=== PATIENT | female | born 1940 | race African-American/Black ===

== ENCOUNTER 2016-09-23 14:30 | Emergency (ER) | payer MEDICARE, BC ==
[~2016-09-23] VITALS: Ht 160 cm; Wt 80.0 kg
[2016-09-23 14:45] VITALS: BP 128/73; PULSE 89; RESP 18; TEMP 98.9; O2SAT 97
[2016-09-23] MEDS ORDERED: TRIA37.53 PO (15:06)
[2016-09-23] MEDS ORDERED: DIFL0.0512 (15:06)
[2016-09-23] MEDS ORDERED: ASPI81CH CHEW (15:06)
[2016-09-23] MEDS ORDERED: SYSTSOL11 (15:06)
[2016-09-23] MEDS ORDERED: TIMO5SOL LEFT EYE (15:06)
[2016-09-23] MEDS ORDERED: ALPR.25 PO (15:06)
[2016-09-23] MEDS ORDERED: ROSU1TAB4 PO (15:06)
[2016-09-23] MEDS ORDERED: MOME17I EACH NARE (15:06)
[2016-09-23] MEDS ORDERED: EVIS60TA PO (15:06)
[2016-09-23] MEDS ORDERED: FOLI1TAB4 PO (15:06)
[2016-09-23] MEDS ORDERED: ICOS1CAP PO (15:06)
[2016-09-23] MEDS ORDERED: POTA10CA PO (15:06)
[2016-09-23] MEDS ORDERED: TRAM50TA PO (15:06)
[2016-09-23] MEDS ORDERED: ZANT150T2 PO (15:06)
--- NOTE | 2016-09-23 15:11 | PD ---
HPI Chief Complaint: Cold / Flu Symptoms Time Seen by Provider: 15:09 Travel History International Travel<30 days: No Contact w/Intl Traveler<30days: No Traveled to known affect area: No History of Present Illness HPI 76 year old female with PMH of DM, GERD, TIA presents to the ED for evaluation of 5 day history of nonproductive cough, chills, malaise. The patient is visiting from the [facility] area. She endorses chronic sinusitis (no worse today), mildly sore throat, very mild nausea. She denies fevers, ear pain, headache, shortness of breath, abdominal pain, vomiting, dysuria or back pain. She endorses chronic urinary urgency which she attributes to "my water pill." No treatment attempted at home. PFSH Past Medical History Anxiety: Yes High Cholesterol: Yes Cerebrovascular Accident: Yes (tia) Diabetes: Yes Patient Takes Glucophage: No GERD: Yes Social History Alcohol Use: No Tobacco Use: No Allergies-Medications (Allergen,Severity, Reaction): Coded Allergies: Bactrim (Verified Allergy, Severe, Rash, 09/23/16) Benadryl (Verified Allergy, Severe, Anaphylaxis, 09/23/16) Colace (Verified Allergy, Severe, Nausea/Vomiting, 09/23/16) Contrast Media (Verified Allergy, Severe, Dizziness, 09/23/16) Diflucan (Verified Allergy, Severe, Rash, 09/23/16) Erythromycin (Verified Allergy, Severe, Rash, 09/23/16) Fluconazole (Verified Allergy, Severe, Anaphylaxis, 09/23/16) Keflex (Verified Allergy, Severe, Anaphylaxis, 09/23/16) Zetia (Verified Allergy, Severe, Rash, 09/23/16) Zithromax (Verified Allergy, Severe, Anaphylaxis, 09/23/16) Dimetapp (Verified Allergy, Intermediate, ITCHING, 09/23/16) Penicillin (Verified Allergy, Intermediate, HIVES, 09/23/16) Reported Meds & Prescriptions Reported Meds & Active Scripts Active Tessalon Perles (Benzonatate) 100 Mg Cap 200 Mg PO TID PRN Levaquin (Levofloxacin) 750 Mg Tab 750 Mg PO DAILY Reported Tramadol (Tramadol HCl) 50 Mg Tab 50 Mg PO Q4H PRN Timolol Opth Drops 0.25 % Soln 1 Drop LEFT EYE DAILY Evista (Raloxifene HCl) 60 Mg Tab 60 Mg PO DAILY Zantac (Ranitidine HCl) 150 Mg Tab 150 Mg PO BID Systane Ultra Preservative Opth (Polyethylene Glycol-Propylene Opth) 0.4-0.3% Soln Nasonex Nasal [place] (Mometasone Furoate) 50 Mcg/Act Naspr 2 [place] EACH NARE DAILY Durezol Opth (Difluprednate Opth) 0.05% Emul Xanax (Alprazolam) 0.25 Mg Tab 0.25 Mg PO Q6H PRN Rosuvastatin (Rosuvastatin Calcium) 5 Mg Tab 5 Mg PO DAILY Potassium Chloride ER (Potassium Chloride) 10 Meq Cap 10 Meq PO DAILY Vascepa (Icosapent) 1 Gm Cap 1 Gm PO BID Triamterene-Hydrochlorothiazide 37.5-25 Mg Cap 1 Cap PO DAILY Folate (Folic Acid) 1 Mg Tab 1 Mg PO DAILY Aspirin 81 Mg Chew 81 Mg CHEW DAILY Review of Systems Except as stated in HPI: all other systems reviewed are Neg Physical Exam Narrative GENERAL: Well-nourished, well-developed nontoxic-appearing black female in no acute distress. SKIN: Warm and dry. HEAD: Normocephalic. Atraumatic. EYES: No scleral icterus. No injection or drainage. PERRLA. EOMI. ENT: Pearly biggs tympanic membranes bilaterally. Nasal mucosa is moist. Oropharynx without erythema, edema or exudate. NECK: Supple, trachea midline. No JVD or lymphadenopathy. CARDIOVASCULAR: Regular rate and rhythm without murmurs, gallops, or rubs. 2+ DP and radial pulses bilaterally. RESPIRATORY: Breath sounds clear and equal bilaterally. No accessory muscle use. GASTROINTESTINAL: Abdomen soft, non-tender, nondistended. + Bowel sounds MUSCULOSKELETAL: No cyanosis, or edema. The patient is ambulatory and walks with a normal gait. BACK: Nontender without obvious deformity. No CVA tenderness. Data Data Last Documented VS Vital Signs Date Time Temp Pulse Resp B/P Pulse Ox O2 Delivery O2 Flow Rate FiO2 09/23/16 14:45 98.9 89 18 128/73 97 Orders Group A Rapid Strep Screen (09/23/16 15:15) Influenzae A/B Antigen (09/23/16 15:15) Chest, Single Ap (09/23/16 ) Strep Culture (Group A) (09/23/16 15:20) MDM Medical Decision Making Medical Screen Exam Complete: Yes Emergency Medical Condition: Yes Differential Diagnosis viral syndrome versus pharyngitis versus influenza versus GERD versus pneumonia versus other Narrative Course 76 year old female with PMH of DM, GERD, TIA presents to the ED for evaluation of 5 day history of nonproductive cough, chills, malaise. The patient is visiting from the [facility] area. She endorses chronic sinusitis (no worse today), mildly sore throat, very mild nausea. She denies fevers, ear pain, headache, shortness of breath, abdominal pain, vomiting, dysuria or back pain. She endorses chronic urinary urgency which she attributes to "my water pill." No treatment attempted at home. Vitals reviewed. Physical exam reveals a nontoxic- appearing black female in no acute distress. ENT exam is unremarkable. Chest is clear to auscultation bilaterally. Abdomen soft, nontender. Rapid strep swab, influenza swab and chest x-ray ordered. Dr. Kaplan assumed care of this patient. Please see his note for disposition. Scripts Benzonatate (Tessalon Perles)100 Mg [id number] Mg PO TID PRN (COUGH) #21 CAP Ref 0 Prov:Marcial Kaplan MD 09/23/16 Levofloxacin (Levaquin)750 Mg [id number] Mg PO DAILY #7 TAB Ref 0 Prov:Marcial Kaplan MD 09/23/16 Yodit Tavarez Sep 23, 2016 15:11
--- NOTE | 2016-09-23 16:21 | RADHPO ---
EXAM DATE/TIME: 09/23/2016 15:47 [facility] COMPARISON: No previous studies available for comparison. INDICATIONS : Cough and fever. MEDICAL HISTORY : None. SURGICAL HISTORY : None. ENCOUNTER: Initial ACUITY: 1 week PAIN SCORE: 2/10 LOCATION: Bilateral chest FINDINGS: A single view of the chest demonstrates the lungs to be symmetrically aerated without evidence of mas s, infiltrate or effusion. The cardiomediastinal contours are unremarkable. Osseous structures are intact. CONCLUSION: No acute disease. Dakota Lozano MD FACR on September 23, 2016 at 16:12 Board Certified Radiologist. This report was verified electronically.
[2016-09-23] MEDS ORDERED: LEVA750T PO (16:27)
[2016-09-23] MEDS ORDERED: BENZ100 PO (16:27)
--- NOTE | 2016-09-23 16:27 | PD ---
Physical Exam Narrative Patient was seen by my physician sales operations assistant and signed out to me. Data Data Last Documented VS Vital Signs Date Time Temp Pulse Resp B/P Pulse Ox O2 Delivery O2 Flow Rate FiO2 09/23/16 14:45 98.9 89 18 128/73 97 Orders Group A Rapid Strep Screen (09/23/16 15:15) Influenzae A/B Antigen (09/23/16 15:15) Chest, Single Ap (09/23/16 ) Strep Culture (Group A) (09/23/16 15:20) MDM Supervised Visit with CHRISTINA: Yes Interpretation(s) 1625 PM. Chest x-ray shows no acute consolidation. Strep screen negative. Influenza B antigen negative. Narrative Course Patient states that she has many allergies to medications and will take the prescription of Levaquin and discussed with her physician before taking them. Diagnosis Primary Impression: Bronchitis Patient Instructions: General Instructions Additional Instruction: Levaquin and Tessalon as directed. Follow-up with personal physician. Return if worse. Med/Other Pt SpecificInfo: Prescription(s) given Scripts Benzonatate (Tessalon Perles)100 Mg [id number] Mg PO TID PRN (COUGH) #21 CAP Ref 0 Prov:Marcial Kaplan MD 09/23/16 Levofloxacin (Levaquin)750 Mg [id number] Mg PO DAILY #7 TAB Ref 0 Prov:Marcial Kaplan MD 09/23/16 Disposition: 01 DISCHARGE HOME Condition: Stable Marcial Kaplan MD Sep 23, 2016 16:27
== END 2016-09-23 16:44 | disposition home or self-care (01) ==
LOC: PHEFT 14:30
DX: J40 Bronchitis, not specified as acute or chronic (principal); K21.9 Gastro-esophageal reflux disease without esophagitis; E11.9 Type 2 diabetes mellitus without complications; Z86.73 Personal history of transient ischemic attack (TIA), and cerebral infarction without residual deficits; R39.15 Urgency of urination; E78.00 Pure hypercholesterolemia, unspecified; F41.9 Anxiety disorder, unspecified; Z79.899 Other long term (current) drug therapy
CPT/HCPCS: 71010; 87081; 87804; 87880; 99283